=== PATIENT | male | born 1960 | race Caucasian/White ===

== ENCOUNTER → 2017-02-15 | Outpatient (CLI) | payer OTHER ==
--- NOTE | 2017-02-15 08:52 | RAD ---
Three-view left shoulder radiographs 02/15/2017 Clinical history: Left shoulder pain with decreased abduction for 3 weeks. Lifting injury. AP internal and external rotation and transscapular digital radiographs of the left shoulder were obtained. No fracture or dislocation of the left shoulder is seen. Enthesophyte formation is seen involving the greater tuberosity of the left humerus. Calcification is seen in the region of the distal left supraspinatus tendon which may reflect calcific tendinitis. Mild to moderate degenerative changes are seen involving the left AC joint. Very mild degenerative changes are seen involving the left glenohumeral joint. Impression: Degenerative changes are seen involving the left shoulder as outlined above. No acute osseous abnormality seen.
== END | disposition home or self-care (01) ==
LOC: DXRADRC 08:23
PROVIDERS: ATTEND Physician Assistant Medical
DX: M19.012 Primary osteoarthritis, left shoulder (principal); M25.812 Other specified joint disorders, left shoulder
CPT/HCPCS: 73030

== ENCOUNTER → 2020-08-18 | Outpatient (CLI) | payer SELFPAY ==
--- NOTE | 2020-08-18 19:19 | RAD ---
Exam: Left forearm 2 views. Left wrist 3 views. Left hand 3 views INDICATION: Arm pain after eating with sledgehammer TECHNIQUE: Frontal, lateral oblique views of the left hand and left wrist. Frontal and lateral views left forearm Comparisons: None FINDINGS: Hand: Bone mineralization is normal. No acute or healed fractures. Soft tissues are unremarkable. Joint spa kenji are well-maintained. Wrist: Bone mineralization is normal. No acute or healed fractures. Soft tissues are unremarkable. Joint spa kenji are well-maintained. Forearm: Bone mineralization is normal. No acute or healed fractures. Soft tissues are unremarkable. Joint spa kenji are well-maintained. IMPRESSION: 1. No acute osseous abnormality of the left hand. 2. No acute osseous abnormality of the left wrist 3. No acute osseous abnormality of the left forearm Electronically signed by: Radha Cleary MD (08/18/2020 7:16 PM) CAS
== END ==
LOC: DXRAD 18:21
PROVIDERS: ATTEND Nurse Practitioner Family
DX: M79.642 Pain in left hand (principal)
CPT/HCPCS: 73090; 73110; 73130